=== PATIENT | female | born 1935 | race Caucasian/White ===

== ENCOUNTER 2022-01-14 11:09 | Emergency (ER) | payer OTHER ==
[~2022-01-14] VITALS: Ht 160 cm; Wt 70.3 kg
[2022-01-14] MEDS ORDERED: ACETAMINOPHEN ES 500 MG TABLET PO ONE (11:30)
[2022-01-14] MEDS ORDERED: IPRATROPIUM BROMIDE 0.5 MG/2.5 ML NEBU NEB ONE (11:30)
[2022-01-14] MEDS ORDERED: ALBUTEROL SULFATE 2.5 MG/3 ML NEBU NEB ONE (11:30)
[2022-01-14] MEDS ORDERED: ALBUTEROL SULFATE 2.5 MG/3 ML NEBU ONE (11:37)
[2022-01-14] MEDS ORDERED: IPRATROPIUM BROMIDE 0.5 MG/2.5 ML NEBU ONE (11:37)
[2022-01-14] MEDS ORDERED: ACETAMINOPHEN ES 500 MG TABLET ONE (11:49)
[2022-01-14 11:53] LABS: HEMATOCRIT 36.7 % (31.2-41.9); MEAN CORPUSCULAR HEMOGLOBIN 30.6 uug (24.7-32.8); MEAN CORPUSCULAR VOLUME 93.1 fL (75.5-95.3); PLATELET COUNT (AUTO) 219 K/uL (179-408)
[2022-01-14 12:04] LABS: BILIRUBIN,DIRECT 0.1 mg/dL (0.0-0.2); BILIRUBIN,TOTAL 0.2 mg/dL (0.2-1.0); CREATININE 1.2 mg/dL (0.6-1.3); TOTAL PROTEIN, SERUM 6.8 g/dL (6.4-8.2)
[2022-01-14] MEDS ORDERED: KETOROLAC TROMETHAMINE 15 MG INJ IM ONE (12:30)
[2022-01-14] MEDS ORDERED: ONDA4TAB11 PO (12:32)
[2022-01-14] MEDS ORDERED: ALBU18HF2 INH (12:32)
[2022-01-14] MEDS ORDERED: OSEL75CA PO (12:32)
[2022-01-14] MEDS ORDERED: KETOROLAC TROMETHAMINE 15 MG INJ ONE (12:35)
--- NOTE | 2022-01-14 12:43 | NUR ---
Patient discharged to home in stable condition with slow steady gait. Written and verbal after care instructions given to patient's granddaughter who is an RN. Patient's family verbalized understanding and compliance of instructions. Stressed follow up with primary doctor or return to ER for worsening s/s.
== END 2022-01-14 12:43 | disposition home or self-care (01) ==
LOC: ER 11:09
DX: J10.1 Influenza due to other identified influenza virus with other respiratory manifestations (principal); R91.8 Other nonspecific abnormal finding of lung field; Z20.822 Contact with and (suspected) exposure to COVID-19
CPT/HCPCS: 99284; 71045; 87426; 80076; 80048; 85025; 87400; 36415; 94640; 96372; J1885; A4663; A9150; J3590